=== PATIENT | female | born 1960 | race Caucasian/White ===

== ENCOUNTER 2024-06-11 14:23 | Emergency (ER) | payer OTHER | END 2024-06-11 14:56 | disposition home or self-care (01) | LOC: MADERS 14:23 | DX: J01.00 Acute maxillary sinusitis, unspecified (principal); J20.9 Acute bronchitis, unspecified; Z87.891 Personal history of nicotine dependence | CPT/HCPCS: 99283 ==

== ENCOUNTER 2024-08-25 12:24 | Emergency (ER) | payer OTHER | END 2024-08-25 14:00 | disposition home or self-care (01) | LOC: MADERS 12:24 | DX: S00.83XA Contusion of other part of head, initial encounter (principal); S80.02XA Contusion of left knee, initial encounter; S80.01XA Contusion of right knee, initial encounter; J01.40 Acute pansinusitis, unspecified; R51.9 Headache, unspecified; I10 Essential (primary) hypertension; K21.9 Gastro-esophageal reflux disease without esophagitis; E78.00 Pure hypercholesterolemia, unspecified; Z79.899 Other long term (current) drug therapy; Z87.891 Personal history of nicotine dependence; W01.198A Fall on same level from slipping, tripping and stumbling with subsequent striking against other object, initial encounter | CPT/HCPCS: 70450; 72125 ==

== ENCOUNTER 2024-10-07 22:23 | Emergency (ER) | payer OTHER ==
[2024-10-07] MEDS ORDERED: Dexamethasone 10 MG/ML VIAL ONE (23:01)
[2024-10-07] MEDS ORDERED: Ipratropium/Albuterol 3 ML NEB ONE (23:03)
== END 2024-10-07 23:45 | disposition home or self-care (01) ==
LOC: MADERS 22:23
DX: J18.9 Pneumonia, unspecified organism (principal); I10 Essential (primary) hypertension; E78.00 Pure hypercholesterolemia, unspecified; K21.9 Gastro-esophageal reflux disease without esophagitis; Z87.891 Personal history of nicotine dependence; Z79.899 Other long term (current) drug therapy; Z55.6 Problems related to health literacy
CPT/HCPCS: 71046; 87798; J1100; J7620

== ENCOUNTER 2024-10-31 13:44 | Outpatient (CLI) | payer OTHER | END 2024-10-31 13:45 | disposition home or self-care (01) | LOC: MADRAD 13:44 | PROVIDERS: ATTEND Internal Medicine Sleep Medicine | DX: J44.9 Chronic obstructive pulmonary disease, unspecified (principal) | CPT/HCPCS: 71046 ==